=== PATIENT | female | born 1955 | race Caucasian/White ===

== ENCOUNTER 2023-03-26 21:09 | Emergency (ER) | payer OTHER, BC ==
[2023-03-26 21:17] VITALS: BP 118/67; PULSE 108; RESP 20; TEMP 98.4; BMI 18.6
[2023-03-26] MEDS ORDERED: BACITRACIN 0.9 GM PACKET TP ONE (22:46)
[2023-03-26] MEDS ORDERED: predniSONE 20 MG TABLET (UD) ONE (23:02)
[2023-03-26] MEDS ORDERED: predniSONE 10 MG TABLET (UD) ONE (23:02)
[2023-03-26 23:03] LABS: BASO % 0.3 % (0-2.0); EOS % 0.7 % (0-4.5); HEMATOCRIT 31.3 % (32.4-45.2); HEMOGLOBIN 10.8 GM/dL (10.7-15.3); LYMPH % 8.7 % (8-40); MCH 31.9 pg (25.7-33.7); MCHC 34.6 g/dl (32.0-36.0); MEAN CELL VOLUME 92.4 fl (80-96); MEAN PLT VOLUME 5.9 fl (7.5-11.1); MONO % 9.4 % (3.8-10.2); NEUT % 80.9 % (42.8-82.8); PLATELET COUNT 389 10^3/uL (134-434); RBC 3.39 M/mm3 (3.60-5.2); RDW 12.7 % (11.6-15.6); WHITE BLOOD COUNT 7.8 K/mm3 (4.0-10.0)
[2023-03-26 23:11] LABS: POTASSIUM 3.6 mmol/L (3.5-5.1)
[2023-03-26] MEDS ORDERED: predniSONE 20 MG TABLET (UD) PO ONE (23:11)
[2023-03-26 23:13] LABS: ALBUMIN 2.4 g/dl (3.4-5.0); BLOOD UREA NITROGEN 24.1 mg/dL (7-18); CALCIUM 8.2 mg/dL (8.5-10.1)
[2023-03-26 23:16] LABS: CREATININE 0.9 mg/dL (0.55-1.3)
[2023-03-26 23:19] LABS: BILIRUBIN,TOTAL 0.4 mg/dL (0.2-1); TOT PROT 5.5 g/dl (6.4-8.2)
[2023-03-27] MEDS ORDERED: predniSONE 20 MG TABLET (UD) PO ONE (22:45)
== END 2023-03-26 23:56 | disposition home or self-care (01) ==
LOC: JER 21:09
DX: R21 Rash and other nonspecific skin eruption (principal); L30.9 Dermatitis, unspecified; Z20.822 Contact with and (suspected) exposure to COVID-19
CPT/HCPCS: 0241U-QW; 36415; 80053; 85025; 86140; 99283-25